=== PATIENT | female | born 1965 | race Two or more races ===

== ENCOUNTER 2017-08-31 09:29 | Outpatient (CLI) | payer OTHER | END 2017-08-31 16:29 | disposition home or self-care (01) | LOC: MAMO-SONO 09:29 | DX: Z12.31 Encounter for screening mammogram for malignant neoplasm of breast (principal); N62 Hypertrophy of breast ==

== ENCOUNTER 2018-03-26 08:04 | Outpatient (CLI) | payer OTHER | END 2018-03-26 08:30 | disposition home or self-care (01) | LOC: NUCLEAR 08:04 | DX: R06.02 Shortness of breath (principal); R60.0 Localized edema; E78.89 Other lipoprotein metabolism disorders; I87.2 Venous insufficiency (chronic) (peripheral) ==

== ENCOUNTER 2021-08-26 09:39 | Outpatient (CLI) | payer OTHER | END 2021-08-26 09:49 | disposition home or self-care (01) | LOC: MAMO-SONO 09:39 | PROVIDERS: ATTEND General Practice | DX: Z12.31 Encounter for screening mammogram for malignant neoplasm of breast (principal); M54.2 Cervicalgia ==

== ENCOUNTER → 2021-08-28 | Outpatient (CLI) | payer OTHER | END | disposition home or self-care (01) | LOC: NUCLEAR 11:30 | PROVIDERS: ATTEND General Practice | DX: M81.0 Age-related osteoporosis without current pathological fracture (principal) ==

== ENCOUNTER 2021-10-10 08:06 | Outpatient (CLI) | payer OTHER | END 2021-10-10 08:15 | disposition home or self-care (01) | LOC: RAD 08:06 | PROVIDERS: ATTEND Surgery | DX: C50.412 Malignant neoplasm of upper-outer quadrant of left female breast (principal); R22.2 Localized swelling, mass and lump, trunk ==

== ENCOUNTER → 2021-10-21 | Outpatient (CLI) | payer OTHER | END | disposition home or self-care (01) | LOC: NUCLEAR 07:00 | PROVIDERS: ATTEND Internal Medicine | DX: C50.412 Malignant neoplasm of upper-outer quadrant of left female breast (principal); C77.3 Secondary and unspecified malignant neoplasm of axilla and upper limb lymph nodes | CPT/HCPCS: 78306; A9503 ==

== ENCOUNTER 2021-11-27 10:37 | Outpatient (CLI) | payer OTHER | END 2021-11-27 10:39 | disposition home or self-care (01) | LOC: TOM 10:37 | PROVIDERS: ATTEND Psychiatry & Neurology Neurology | DX: G44.219 Episodic tension-type headache, not intractable (principal) ==

== ENCOUNTER 2021-12-06 06:50 | Day surgery (SDC) | payer OTHER ==
[~2021-12-06 06:50] MED LIST: ANASTROZOLE1 MG PO; ATORVASTATIN CA40 MG PO; COZAAR50 MG PO
== END 2021-12-06 20:35 | disposition home or self-care (01) ==
LOC: CIR.AMB 06:50
PROVIDERS: ATTEND Surgery
DX: D05.12 Intraductal carcinoma in situ of left breast (principal); C77.3 Secondary and unspecified malignant neoplasm of axilla and upper limb lymph nodes; Z17.0 Estrogen receptor positive status [ER+]; Z20.822 Contact with and (suspected) exposure to COVID-19; I10 Essential (primary) hypertension; E66.9 Obesity, unspecified
CPT/HCPCS: 19281; 19302; 78195; A9541; L8699

== ENCOUNTER 2022-06-27 08:55 | Outpatient (CLI) | payer OTHER | END 2022-06-27 09:07 | disposition home or self-care (01) | LOC: TOM 08:55 | PROVIDERS: ATTEND Internal Medicine | DX: C50.412 Malignant neoplasm of upper-outer quadrant of left female breast (principal) ==

== ENCOUNTER 2022-10-21 09:47 | Outpatient (CLI) | payer OTHER | END 2022-10-21 10:02 | disposition home or self-care (01) | LOC: MAMO-SONO 09:47 | PROVIDERS: ATTEND Internal Medicine | DX: N63.31 Unspecified lump in axillary tail of the right breast (principal); N63.32 Unspecified lump in axillary tail of the left breast; N63.11 Unspecified lump in the right breast, upper outer quadrant; N63.12 Unspecified lump in the right breast, upper inner quadrant; N63.13 Unspecified lump in the right breast, lower outer quadrant; N63.14 Unspecified lump in the right breast, lower inner quadrant; N63.22 Unspecified lump in the left breast, upper inner quadrant; N63.21 Unspecified lump in the left breast, upper outer quadrant; N63.24 Unspecified lump in the left breast, lower inner quadrant; N63.23 Unspecified lump in the left breast, lower outer quadrant; Z12.31 Encounter for screening mammogram for malignant neoplasm of breast ==

== ENCOUNTER 2022-11-06 08:52 | Outpatient (CLI) | payer OTHER | END 2022-11-06 09:17 | disposition home or self-care (01) | LOC: MRI 08:52 | DX: R10.11 Right upper quadrant pain (principal); R10.31 Right lower quadrant pain; R10.2 Pelvic and perineal pain | CPT/HCPCS: 72195; 74181 ==